=== PATIENT | male | born 1955 | race Hispanic/Latino ===

== ENCOUNTER 2018-06-12 19:15 | Emergency (ER) | payer SELFPAY ==
[~2018-06-12 19:15] MED LIST: ISOVUE-370 76%-LOCM 1 ML ONE
[2018-06-12 20:01] LABS: #Basophils 0.1 thou/uL (0.0-0.2); #Eosinphils 0.2 thou/uL (0.0-0.7); #Lymphocytes 2.7 thou/uL (1.20-3.40); #Monocytes 0.8 thou/uL (0.11-0.59); %Eosinophils 2.5 % (0.0-10.0); %Lymphocytes 30.8 % (21.0-51.0); %Monocytes 9.5 % (0.0-10.0); %Neutrophils 56.3 % (42.0-75.0); Mean Corpuscular HGB CONC 33.3 g/dL (32.0-36.0); Mean Corpuscular Hemoglobin 31.7 pg (27.0-31.0); Mean Corpuscular Volume 95.3 fL (78.0-98.0); Mean Platelet Volume 6.6 fL (7.4-10.4); Platelet Count 319 thou/uL (130-400); RBC Distribution Width 11.8 % (11.5-14.5); Red Blood Cell (RBC) Count 3.79 mill/uL (4.70-6.10); White Blood Cell (WBC) Count 8.9 thou/uL (4.8-10.8)
--- NOTE | 2018-06-12 20:06 | RAD ---
CHEST TWO VIEWS: HISTORY: Chest pain. Trouble breathing. TECHNIQUE: PA and lateral views of the chest are obtained. FINDINGS: Two views of the chest demonstrate a 5.4 cm ill-defined, spiculated mass in the right upper lobe. Th is may represent a neoplastic mass versus an area of opacification from round pneumonia. Some pulmon rai vascular congestion is seen. There also appears to be an area of patchy density in the left uppe r lobe. This may represent a second lesion. Right upper lobe mass with possible left upper lobe areas of opacities as well. Correlate with clini ale examination and follow-up radiographs to resolution. POS: [facility]
[2018-06-12 20:21] LABS: ALT (SGPT) 9 U/L (8-55); AST (SGOT) 20 U/L (5-34); Albumin 3.1 g/dL (3.4-4.8); Alkaline Phosphatase 124 U/L (40-150); Anion Gap 11 mmol/L (10-20); BUN (Urea Nitrogen) 13 mg/dL (8.4-25.7); Bilirubin, Total 0.4 mg/dL (0.2-1.2); Calc. Creatinine Clearance 0 mL/min (70-130); Calcium 8.6 mg/dL (7.8-10.44); Carbon Dioxide 25 mmol/L (23-31); Chloride 103 mmol/L (98-107); Estimated GFR-MDRD 79; Globulin 4.2 g/dL (2.4-3.5); Glucose 106 mg/dL (80-115); Protein, Total 7.3 g/dL (5.8-8.1); Sodium 135 mmol/L (136-145)
--- NOTE | 2018-06-12 21:29 | CT ---
CTA CHEST: HISTORY: Chest pain. Trouble breathing. TECHNIQUE: A contrast enhanced CTA of the chest is performed with 2D and 3D reconstructed images performed on an independent 3D work station. FINDINGS: CT images demonstrate a 4.4 x 3.6 cm posterior aspect right upper lobe ill-defined mass. This is con cerning for possible malignancy. There is also a second more anterior left upper lobe mass, diameter measuring 2.5 cm. A third nodular density is also seen in the more inferior aspect of the right upper lobe, diameter me asuring approximately 8 mm. Some superior mediastinal, aortopulmonary window, subcarinal, and bilate ral hilar lymphadenopathy is also seen. Coronary artery calcification is seen. Fibrotic and emphysematous change is seen in the lung parenchyma. This is seen bilaterally, predomin antly in the upper lobes. IMPRESSION: 1. Multiple lung parenchymal nodules, the largest in the right upper lobe. 2. Extensive mediastinal lymphadenopathy is also seen. 3. There is also left axillary extensive lymphadenopathy seen. POS: [facility]
== END 2018-06-12 22:23 | disposition home or self-care (01) ==
LOC: ERS 19:15
DX: C34.92 Malignant neoplasm of unspecified part of left bronchus or lung (principal); C34.91 Malignant neoplasm of unspecified part of right bronchus or lung; J44.9 Chronic obstructive pulmonary disease, unspecified; Z87.891 Personal history of nicotine dependence; Z87.01 Personal history of pneumonia (recurrent)
CPT/HCPCS: 36415; 71046; 71275; 80053; 83690; 83880; 84484; 85025; 85379; 93005; Q9966

== ENCOUNTER 2018-09-22 23:50 | Emergency (ER) | payer OTHER ==
[2018-09-23] MEDS ORDERED: fentaNYL Citrate/PF 2,000 MCG in Sodium Chloride 0.9% 60 ML IV SCH (00:12)
[2018-09-23 00:21] LABS: Base Excess-Venous -18.4 mmol/L (-2.0 to 3.0); Bicarbonate (HCO3v) 12.8 mmol/L (22.0-28.0); CO2 Tension (PvCO2) 53.5 mmHg (40.0-50.0); Calcium, Ionized 1.04 mmol/L (See Comments:); Chloride 101 mmol/L (98-107); Glucose 283 mg/dL (80-115); Lactate 9.69 mmol/L (0.50-2.20); O2 Tension (PvO2) 44.7 mmHg (35.0-45.0); Potassium 5.1 mmol/L (3.5-5.1); Sodium 129 mmol/L (138-145); T. Carbon Dioxide 14.4 mmol/L (22.0-28.0); pH (Venous) 6.985 (7.320-7.430); vO2 Saturation-calc 55.8 % (60.0-85.0)
[2018-09-23 00:39] LABS: INR-International Normal Ratio 1.4; PTT 38.6 SEC (22.9-36.1); Prothrombin Time 17.5 SEC (12.0-14.7)
[2018-09-23 00:42] LABS: Band 5 % (5-11); Hemoglobin 10.6 g/dL (14.0-18.0); Lymphocytes 41 % (21-51); MDiff Complete? YES; Mean Corpuscular Hemoglobin 31.1 pg (27.0-31.0); Mean Corpuscular Volume 97.3 fL (78.0-98.0); Mean Platelet Volume 7.2 fL (7.4-10.4); Metamyelocyte 1 % (0-0); Monocytes 3 % (0-10); Neutrophil 50 % (42-75); Platelet Count 165 thou/uL (130-400); Platelet Morphology Comment Appears Adequate; RBC Distribution Width 13.4 % (11.5-14.5); Red Blood Cell (RBC) Count 3.41 mill/uL (4.70-6.10); White Blood Cell (WBC) Count 17.7 thou/uL (4.8-10.8)
[2018-09-23 00:43] LABS: ALT (SGPT) 107 U/L (8-55); AST (SGOT) 122 U/L (5-34); Alkaline Phosphatase 73 U/L (40-150); Anion Gap 23 mmol/L (10-20); BUN (Urea Nitrogen) 82 mg/dL (8.4-25.7); Bilirubin, Total 0.2 mg/dL (0.2-1.2); CK (CPK) 52 U/L (30-200); Calc. Creatinine Clearance 0 mL/min (70-130); Calcium 7.5 mg/dL (7.8-10.44); Carbon Dioxide 13 mmol/L (23-31); Chloride 99 mmol/L (98-107); Estimated GFR-MDRD 26; Globulin 2.7 g/dL (2.4-3.5); Glucose 280 mg/dL (80-115); Lipase 31 U/L (8-78); Magnesium 2.8 mg/dL (1.6-2.6); Potassium 5.2 mmol/L (3.5-5.1); Protein, Total 4.7 g/dL (5.8-8.1); Sodium 130 mmol/L (136-145)
[2018-09-23] MEDS ORDERED: Calcium Chloride 1 GM/10 ML Abboject SYRINGE ONE (00:45)
[2018-09-23] MEDS ORDERED: EPINEPHrine 1 MG/10 ML Abboject SYRINGE ONE (00:45)
[2018-09-23] MEDS ORDERED: Sodium Bicarb 50 MEQ/50 ML Abboject 8.4% SYRINGE ONE (00:45)
[2018-09-23 01:14] LABS: CKMB 1.4 ng/mL (0-6.6)
--- NOTE | 2018-09-23 07:46 | RAD ---
PORTABLE SUPINE CHEST: HISTORY: ROSC, shortness of breath, chest pain. COMPARISON: 06/12/2018. FINDINGS/IMPRESSION: Cardiomegaly. Vascular congestion. Perihilar infiltrates which may represent edema or inflammatory process. ET tube and G Tube are noted. POS: OFF
== END 2018-09-23 00:45 | disposition expired ==
LOC: ERS 23:50
DX: I46.9 Cardiac arrest, cause unspecified (principal); J44.9 Chronic obstructive pulmonary disease, unspecified; Z87.891 Personal history of nicotine dependence
CPT/HCPCS: 33010; 36415; 36556; 71045; 80053; 82330; 82550; 82553; 82803; 83605; 83690; 83735; 83880; 84484; 85025; 85610; 85730; 86850; 86900; 86901; 87040; 92950; 96365; 96375; 96376; J0171; J3010; J3490